=== PATIENT | female | born 1955 | race Caucasian/White ===

== ENCOUNTER 2024-03-24 09:50 | Outpatient (RCR) | payer MEDICARE, OTHER, SELFPAY | END 2024-03-24 23:59 | disposition home or self-care (01) | LOC: RPT 09:50 | PROVIDERS: ATTENDING PHYSICIAN Family Medicine | DX: R26.2 Difficulty in walking, not elsewhere classified (principal); Z86.018 Personal history of other benign neoplasm; Z73.6 Limitation of activities due to disability; Z98.890 Other specified postprocedural states | CPT/HCPCS: 97110; 97112; 97116; 97163; 97530 ==

== ENCOUNTER 2024-04-21 14:02 | Outpatient (RCR) | payer MEDICARE, OTHER, SELFPAY | END 2024-04-21 23:59 | disposition home or self-care (01) | LOC: RPT 14:02 | PROVIDERS: ATTENDING PHYSICIAN Family Medicine | DX: R26.2 Difficulty in walking, not elsewhere classified (principal); Z73.6 Limitation of activities due to disability; M62.81 Muscle weakness (generalized); R53.83 Other fatigue; R26.89 Other abnormalities of gait and mobility; Z86.018 Personal history of other benign neoplasm; Z86.011 Personal history of benign neoplasm of the brain; Z98.890 Other specified postprocedural states | CPT/HCPCS: 97110; 97112; 97530 ==

== ENCOUNTER 2024-05-25 10:32 | Outpatient (RCR) | payer MEDICARE, OTHER, SELFPAY | END 2024-05-25 23:59 | disposition home or self-care (01) | LOC: RPT 10:32 | PROVIDERS: ATTENDING PHYSICIAN Family Medicine | DX: R26.2 Difficulty in walking, not elsewhere classified (principal); Z73.6 Limitation of activities due to disability; Z98.890 Other specified postprocedural states; Z86.018 Personal history of other benign neoplasm | CPT/HCPCS: 97110; 97112; 97116; 97530 ==